=== PATIENT | female | born 1990 | race Caucasian/White ===

== ENCOUNTER 2016-06-22 17:41 | Emergency (ER) | payer BC ==
--- NOTE | 2016-06-22 18:32 | PD ---
HPI Chief Complaint lower abdominal cramping Date Seen: Jun 22, 2016 (David Rivera MD R2) Travel History International Travel<30 Days: No Contact w/Intl Traveler<30Days: No (David Rivera MD R2) History of Present Illness HPI Ms. Wells is a [address] Yi at 24 4/7 weeks via LMP (NABEEL ; records requested) who presents with lower abdominal "cramping" pain and frequent stool. Patient states that she feels that she has been having cramping pain for the past 24 hours which is constant in nature but worsening Q 2030 minutes. Patient also reports more frequent bowel movements than usual, stating she had 4 BM today. No reported blood or mucus in stools. Patient denies dysuria or fever. Patient states she has been drinking less water than usual, and feels that she has been dehydrated while traveling back from [place] (visiting her sister who is delivering a baby). Normal movement. Patient does not report vaginal bleeding or vaginal discharge. Patient does not report headache, visual changes, shortness of breath, nausea/ vomiting, or other symptoms at this time. Per patient, she has had benign history. Patient reports she had an ultrasound which showed her 1 week more advanced in than her LMP; or placental abnormalities reported. Para: 1 : 3 (David Rivera MD R2) History Past Medical History Medical History: Denies Significant Hx (David Rivera MD R2) Obstetric History Obstetric History G3 G1full term, delivered via CS for ? Arrest VS nonreassuring strip. Macrosomia [patient unclear, records requested] G2- miscarriage G3- pending (David Rivera MD R2) Past Surgical History Narrative Surgical section 1 (David Rivera MD R2) Family History Narrative Family History Hypertension, diabetes (David Rivera MD R2) Social History Alcohol Use: No Tobacco Use: No Substance Abuse: No (David Rivera MD R2) Allergies-Medications (Allergen,Severity, Reaction): Coded Allergies: No Known Allergies (Unverified , 06/22/16) Review of Systems General / Constitutional: No: Fever, Chills Eyes: No: Blurred Vision HENT: No: Headaches Cardiovascular: No: Chest Pain or Discomfort Respiratory: Short of Breath (chronic during when patient gets anxious; no increase recently) (David Rivera MD R2) Physical Exam Narrative GENERAL: Well-nourished, well-developed patient. SKIN: Warm and dry. HEAD: Normocephalic and atraumatic. EYES: No scleral icterus. No injection or drainage. ENT: No nasal drainage noted. Mucous membranes pink. Airway patent. NECK: Supple, trachea midline. No JVD. CARDIOVASCULAR: Regular rate and rhythm without murmurs. RESPIRATORY: CTAB, normal rate ABDOMEN/GI: Abdomen soft, non-tender, bowel sounds present, no rebound, no guarding Gravid Uterine Contractions: None EXTREMITIES: No cyanosis or edema. BACK: Nontender without obvious deformity. No CVA tenderness. NEUROLOGICAL: Awake and alert. Motor and sensory function grossly within normal limits. FHT's: FHR 160 bpm on Doppler (David Rivera MD R2) Data Data Vital Signs Reviewed: Yes (David Rivera MD R2) MDM Medical Record Reviewed: Yes Narrative Course / MDM [address] Yi at 24 4/7 weeks via LMP (NABEEL 10/08/2016; records requested) -Cramping abdominal pain -Frequent BM -FHR 160bpm -No contractions on EFM Plan: -Will monitor on EFM -Oral hydration given -Suspect cramping is likely secondary to viral gastroenteritis/stress due to frequent BM. Patient counselled to increase oral intake of fluids. (David Rivera MD R2) Attestation Patient was seen and examined. No problems reported during . Denies problems with US. (Rosina Joyce MD) David Rivera MD R2 Jun 22, 2016 18:32 Rosina Joyce MD Aug 25, 2016 11:09
[2016-06-22 19:03] VITALS: RESP 18
[2016-06-22 19:08] LABS: BACTERIA, URINE RARE /hpf; BLOOD, URINE NEG (NEG); COMMENT (UR) CULT NOT INDICATED; CULTURE IF INDICATED CULT NOT INDICATED; GLUCOSE,URINE NEG (NEG); KETONE, URINE NEG (NEG); MUCUS URINE FEW /lpf (OCC); NITRITE,URINE NEG (NEG); PH, URINE 6.5 (5.0-8.5); SQUAMOUS EPITHELIAL CELL URINE 2 /hpf (0-5); URINE COLOR LIGHT-YELLOW (YELLW/STRAW)
--- NOTE | 2016-06-22 19:40 | PD ---
HPI Chief Complaint Cramping Date Seen: Jun 22, 2016 Travel History International Travel<30 Days: No Contact w/Intl Traveler<30Days: No Known Affected Area: No History of Present Illness HPI at 24w 4d presents with c/o cramping for several hours. Denies contractions. Reports loose stool earlier today, now resolved. Reports some nausea earlier, now resolved. Denies LOF/VB. Denies urinary complaints. Para: 1 : 3 History Past Medical History Medical History: Denies Significant Hx Obstetric History Obstetric History FT C/S- unsure of indication Past Surgical History Surgical History: No Previous Surgery Family History Family History: Negative Social History Alcohol Use: No Tobacco Use: No Substance Abuse: No Allergies-Medications (Allergen,Severity, Reaction): Coded Allergies: No Known Allergies (Unverified , 06/22/16) Physical Exam Vital Signs Date Time Temp Pulse Resp B/P Pulse Ox O2 Delivery O2 Flow Rate FiO2 06/22/16 19:03 18 Narrative GENERAL: Well-nourished, well-developed patient. SKIN: Warm and dry. HEAD: Normocephalic and atraumatic. EYES: No scleral icterus. No injection or drainage. ENT: No nasal drainage noted. Mucous membranes pink. Airway patent. NECK: Supple, trachea midline. No JVD. CARDIOVASCULAR: Regular rate and rhythm without murmurs, gallops, or rubs. RESPIRATORY: Breath sounds equal bilaterally. No accessory muscle use. BREASTS: Bilateral exam showed no masses , no retractions, no nipple discharge. ABDOMEN/GI: Abdomen soft, non-tender, bowel sounds present, no rebound, no guarding Gravid to [-] weeks size Fundal Height: [-] GENITOURINARY: External Genitalia: intact and normal in appearance BUS glands: [-] Cervix: [0] Dilatation: [0] Effacement: [3] Station: [-] Presentation: [-] Membranes: [intact or ruptured] Uterine Contractions: [-] FHT's: Category: [1] Baseline: [140] Reactive: [-] Variability: [moderate] Decels: [none] EXTREMITIES: No cyanosis or edema. BACK: Nontender without obvious deformity. No CVA tenderness. NEUROLOGICAL: Awake and alert. Motor and sensory grossly within normal limits. Five out of 5 muscle strength in all muscle groups. Normal speech. Data Data Orders Vital Signs (Adult) .ON ADMISSION (06/22/16 18:41) ^ Labor Status (06/22/16 18:41) Urinalysis - C+S If Indicated (06/22/16 18:41) Fibronectin (06/22/16 19:29) Labs Laboratory Tests Test 06/22/16 18:14 Urine Color LIGHT-YELLOW Urine Turbidity CLEAR Urine pH 6.5 Urine Specific [place] 1.005 Urine Protein NEG Urine Glucose (UA) NEG Urine Ketones NEG Urine Occult Blood NEG Urine Nitrite NEG Urine Bilirubin NEG Urine Urobilinogen LESS THAN 2.0 Urine Leukocyte Esterase NEG Urine RBC LESS THAN 1 Urine WBC LESS THAN 1 Urine Squamous Epithelial 2 Cells Urine Bacteria RARE Urine Mucus FEW Microscopic Urinalysis Comment CULT NOT INDICATED Laboratory Tests Test 06/22/16 06/22/16 18:14 19:20 Urine Color LIGHT-YELLOW Urine Turbidity CLEAR Urine pH 6.5 Urine Specific [place] 1.005 Urine Protein NEG mg/dL Urine Glucose (UA) NEG mg/dL Urine Ketones NEG mg/dL Urine Occult Blood NEG Urine Nitrite NEG Urine Bilirubin NEG Urine Urobilinogen LESS THAN 2.0 MG/DL Urine Leukocyte Esterase NEG Urine RBC LESS THAN 1 /hpf Urine WBC LESS THAN 1 /hpf Urine Squamous Epithelial 2 /hpf Cells Urine Bacteria RARE /hpf Urine Mucus FEW /lpf Microscopic Urinalysis Comment CULT NOT INDICATED Fibronectin NEGATIVE MDM Interpretation(s) at 24w 4d with cramping/occasional contractions Plan FFN obtained. Will await results. Will begin IVF. Will d/c home if FFN is negative and no cervical change is noted. Close f/u. All questions answered. Diagnosis Diagnosis: Primary Impression: 24 completed weeks of gestation Additional Impression: Irregular contractions Condition: Rosina Prater MD Jun 22, 2016 19:40
[2016-06-22 20:15] VITALS: RESP 18
== END 2016-06-22 20:34 | disposition home or self-care (01) ==
LOC: HOBED 17:41
DX: O26.892 Other specified pregnancy related conditions, second trimester (principal); R10.9 Unspecified abdominal pain; Z3A.24 24 weeks gestation of pregnancy
CPT/HCPCS: 81001; 82731; 96360

== ENCOUNTER 2016-10-01 23:38 | Inpatient (IN) | payer BC, OTHER ==
[~2016-10-01] VITALS: Ht 154.9 cm; Wt 66.7 kg
[2016-10-02] VITALS (44 sets, daily range): BP systolic 93–132; BP diastolic 53–78; PULSE 65–130; RESP 16–20; TEMP 97.6–98.6
--- NOTE | 2016-10-02 00:27 | PD ---
HPI Chief Complaint contraction Date Seen: Oct 02, 2016 Time Seen: 00:15 Travel History International Travel<30 Days: No Contact w/Intl Traveler<30Days: No Known Affected Area: No History of Present Illness HPI Pt is a 26 y/o with IUP at 39.1 weeks who presents with c/o contractions since 2:30 pm. currently feeling every 3-4 minutes. reports some brown spotting today. denies LOF. +FM Pt has a h/o delivery and desires TOLAC Para: 1 : 3 Miscarriage: 1 History Past Medical History Medical History: Denies Significant Hx Obstetric History Obstetric History 01/2013 FT primary CD at 39 wks; pt states she was induced and reached complete dilation and pushed for about 2 hours. states there was meconium stained fluid and was told baby would not fit through pelvis SAB x 1 Past Surgical History Narrative Surgical Family History Family History: Negative Social History Alcohol Use: No Tobacco Use: No Substance Abuse: No Allergies-Medications (Allergen,Severity, Reaction): Coded Allergies: No Known Allergies (Unverified , 06/22/16) Narrative Medication PNV Review of Systems General / Constitutional: Weight Gain Eyes: No: Diploplia, Blurred Vision, Visual changes, Pain, Photophobia, Other HENT: No: Headaches, Vertigo, Dental Difficulties, Lightheadedness, Other Cardiovascular: No: Irregular Rhythm, Chest Pain or Discomfort, Palpitations, Tachycardia, Syncope, Varicosities, Edema, Cyanosis, Other Respiratory: No: Cough, Short of Breath, Wheezing, Other Gastrointestinal: Abdominal Pain Genitourinary: No: Urgency, Frequency, Dysuria, Nocturia, Hematuria, Decreased Urinary Output, Oliguria, Hesitancy, Dribbling, Incontinence, Pelvic Pain, Dyspareunia, Discharge, Menorrhagia, Vaginal Bleeding, Other Musculoskeletal: No: Limited ROM, Weakness, Cramping, Edema, Pain, Other Skin: No Rash, No Itching, No Dryness, No Lumps, No Change in Pigmentation, No Change in Nails, No Alopecia, No Lesions, No Breast Lumps, No Breast Tenderness , No Breast Swelling, No Other Neurologic: No: Weakness, Dizziness, Syncope, Focal Abnormalities, Coordination Problem, Headache, Slurred Speech, Seizures, Other Psychiatric: No: Anxiety, Depression, Suicidal Ideations, Disorder of Thought, Mood Disorder, Substance Abuse, Homicidal Ideation, Other Endocrine: No: Heat Intolerance, Cold Intolerance, Polydipsia, Polyuria, Other Hematologic/Lymphatic: No Easy Bruising, No Lymph Node Enlargement, No Other Physical Exam 112/77, 69, 20, 97.8 Narrative GENERAL: Well-nourished, well-developed patient. SKIN: Warm and dry. HEAD: Normocephalic and atraumatic. EYES: No scleral icterus. No injection or drainage. ENT: No nasal drainage noted. Mucous membranes pink. Airway patent. NECK: Supple, trachea midline. No JVD. CARDIOVASCULAR: Regular rate and rhythm without murmurs, gallops, or rubs. RESPIRATORY: Breath sounds equal bilaterally. No accessory muscle use. ABDOMEN/GI: Abdomen soft, non-tender, bowel sounds present, no rebound, no guarding Gravid GENITOURINARY: External Genitalia: intact and normal in appearance BUS glands: [wnl] Cervix: mid position Dilatation: 1 Effacement: 80 Station: -1 Presentation: [facility] Membranes: intact Uterine Contractions: [q5] FHT's: Category: 1 Baseline: 125 Reactive: yes Variability: mod Decels: early EXTREMITIES: No cyanosis or edema. BACK: Nontender without obvious deformity. No CVA tenderness. NEUROLOGICAL: Awake and alert. Motor and sensory grossly within normal limits. Five out of 5 muscle strength in all muscle groups. Normal speech. Data Data Vital Signs Reviewed: Yes [facility] Medical Record Reviewed: Yes (GBS neg) Narrative Course / MDM 26 y/o with IUP at 39.1 wks with contractions, rule out labor previous desires TOLAC GBS neg cat 1 tracing Pt with regular painful contractions, but only 1 cm dilated. Will have patient ambulate and recheck cervix. PT very uncomfortable with contractions. rates pain 9/10. on recheck, cervix 2 /80/-1, ceph. Will admit for labor, desires TOLAC. Dr. Iglesias notified. Plan admit for delivery GBS neg Alessandra Birmingham MD Oct 02, 2016 00:27
[2016-10-02] MEDS ORDERED: LACTATED RINGER'S 1000 ML INJ 1,000 ML IV PRN (01:50)
[2016-10-02] MEDS ORDERED: SODIUM CHLORID 0.9% 500 ML INJ 500 ML IV PRN (02:00)
[2016-10-02] MEDS ORDERED: LIDOCAINE HCL 1% 50 ML VIAL INFIL PRN (02:00)
[2016-10-02] MEDS ORDERED: MINERAL OIL 10 ML VIAL TOPICAL PRN (02:00)
[2016-10-02] MEDS ORDERED: LIDOCAINE HCL 1% 50 ML VIAL I-DERMAL PRN (02:00)
[2016-10-02] MEDS ORDERED: ONDANSETRON HCL 4 MG/2 ML VIAL IV PRN (02:00)
[2016-10-02] MEDS ORDERED: OXYTOCIN 30 UNITS-500ML PREMIX 500 ML IV ONE (02:00)
[2016-10-02] MEDS ORDERED: CITRIC ACID-SODIUM CITRATE LIQ 30 ML UDC PO SCH (02:00)
[2016-10-02] MEDS ORDERED: PREN0.01 PO (02:10)
[2016-10-02] MEDS ORDERED: SODIUM CHLOR 0.9% 1000 ML INJ 1,000 ML IV PRN (02:10)
[2016-10-02] MEDS ORDERED: fentaNYL 2MCG-BUPIV 0.125% INJ 100 ML ONE (02:35)
[2016-10-02] MEDS ORDERED: ePHEDrine/NS 25 MG/5 ML SYR ONE (02:36)
[2016-10-02 02:40] LABS: AUTOMATED NEUTROPHIL # 12.2 TH/MM3 (1.8-7.7); BASOPHIL # 0.1 TH/MM3 (0-0.2); BASOPHIL % 0.5 % (0.0-2.0); EOSINOPHIL # 0.1 TH/MM3 (0-0.4); EOSINOPHIL % 0.4 % (0.0-4.0); HEMATOCRIT 37.3 % (35.0-46.0); LYMPH % 19.7 % (9.0-44.0); LYMPHOCYTE # 3.2 TH/MM3 (1.0-4.8); MEAN CELL VOLUME 92.9 FL (80.0-100.0); MEAN CORPUSCULAR HEMOGLOBIN 31.3 PG (27.0-34.0); MEAN CORPUSCULAR HGB CONC 33.7 % (32.0-36.0); MONO % 5.2 % (0.0-8.0); NEUT % 74.2 % (16.0-70.0); PLATELET COUNT 174 TH/MM3 (150-450); RED BLOOD COUNT 4.01 MIL/MM3 (4.00-5.30); RED CELL DISTRIBUTION WIDTH 13.1 % (11.6-17.2); WHITE BLOOD COUNT 16.4 TH/MM3 (4.0-11.0)
[2016-10-02 02:55] LABS: HEMO FLAGS AUTO DIFF
[2016-10-02] MEDS: LACTATED RINGER'S 1000 ML INJ 1,000 ML IV SCH ×2 (03:07→14:38)
[2016-10-02] MEDS ORDERED: NO SYSTEM NARCOTICS PRN (03:15)
[2016-10-02] MEDS ORDERED: DO NOT ADMINISTER ANTICOAGULANTS PRN (03:15)
[2016-10-02] MEDS ORDERED: ePHEDrine/NS 25 MG/5 ML SYR IV PRN (03:15)
[2016-10-02 05:09] LABS: BANDS 12 % (0-6); BASOPHILS 1 % (0-2); METAMYELOCYTES 1 % (0-1); NEUTROPHIL # MANUAL DIFF 13.9 TH/MM3 (1.8-7.7); POLYS (SEG NEUTROPHILS) 72 % (16-70); SCAN/DIFF FINAL DIFF MANUAL; WBC DIFF SAMPLE 100
[2016-10-02 05:10] LABS: PLATELET ESTIMATE SMEAR NORMAL (NORMAL); PLATELET MORPHOLOGY NORMAL (NORMAL)
[2016-10-02 05:11] LABS: DOHLE BODIES PRESENT (NONE SEEN)
--- NOTE | 2016-10-02 07:53 | PD.LABORPN ---
Subjective Subjective Began UCs every 5 minutes late last night. Came in and got epidural. comfortable now and excited. Lots of old blood in vault. Objective Vital Signs Vital Signs Date Time Temp Pulse Resp B/P Pulse Ox O2 Delivery O2 Flow Rate FiO2 10/02/16 06:30 78 93/63 10/02/16 06:01 80 106/70 10/02/16 05:45 98.1 18 10/02/16 05:30 69 102/59 10/02/16 05:00 65 99/58 10/02/16 04:30 67 104/54 10/02/16 04:00 92 102/56 10/02/16 03:30 74 110/58 10/02/16 03:20 80 10/02/16 03:20 75 106/59 10/02/16 03:18 82 98/64 10/02/16 03:15 80 10/02/16 03:15 75 106/60 10/02/16 03:13 79 102/57 10/02/16 03:10 79 10/02/16 03:10 77 104/55 10/02/16 03:08 75 115/56 10/02/16 03:07 18 10/02/16 03:05 79 10/02/16 03:05 73 106/59 10/02/16 03:03 74 114/54 10/02/16 03:00 75 110/78 10/02/16 03:00 82 10/02/16 02:59 78 115/68 10/02/16 02:55 78 10/02/16 01:50 20 10/02/16 01:49 80 109/67 10/02/16 01:40 76 10/02/16 01:25 80 10/02/16 01:15 20 10/02/16 00:10 71 Objective 5/100/-1 EFW 7 pounds pelvis clinically adequate strip category one Assessment/Plan Assessment and Plan TOLAC prior section after pushing and meconium (not sure if given adequate time) laboring well on her own) anticipate Bailey Arauz MD Oct 02, 2016 07:53
[2016-10-02] MEDS: fentaNYL 2MCG-BUPIV 0.125% 100 ML EPIDURAL SCH ×2 (09:25→14:38)
[2016-10-02] MEDS ORDERED: OXYTOCIN 30 UNITS-500ML PREMIX 500 ML ONE (15:06)
--- NOTE | 2016-10-02 15:38 | PD.OB.DELI ---
Anesthesia: Epidural Episiotomy: None Vaginal Delivery: Presentation: Occiput anterior Nuchal Cord: None Delayed cord clamping (45 sec): Yes : Male One Minute : 9 Five Minute : 9 Weight: 8 Placenta: Spontaneous delivery Laceration: 1 Bailey Campos MD Oct 02, 2016 15:38
[2016-10-02] MEDS ORDERED: BENZOCAINE 20% TOPICAL SPRAY 60 ML CAN TOPICAL PRN (15:45)
[2016-10-02] MEDS ORDERED: WITCH HAZEL 50%/GLYCERIN 12.5% 40 PAD JAR TOPICAL PRN (15:45)
[2016-10-02] MEDS ORDERED: ONDANSETRON ODT 4 MG TAB PO PRN (15:45)
[2016-10-02] MEDS ORDERED: ZOLPIDEM TARTRATE 5 MG TAB PO PRN (15:45)
[2016-10-02] MEDS ORDERED: SODIUM CHLORIDE 0.9% FLUSH 10 ML FLUSH IV FLUSH PRN (15:45)
[2016-10-02] MEDS ORDERED: ALUMINUM/MAGNESIUM/SIMETH 30 ML CUP PO PRN (15:45)
[2016-10-02] MEDS ORDERED: DIPHTH/TETANUS/ACEL PERTUSSIS (BOOSTER) 0.5 ML VIAL/PFS IM ONE (16:00)
[2016-10-02] MEDS ORDERED: MEASLES, MUMPS, RUBELLA VACCINE 0.5 ML VIAL SQ ONE (16:00)
[2016-10-02] MEDS: DOCUSATE SODIUM 50 MG/SENNA 8.6 MG TAB PO PRN (18:19)
[2016-10-02] MEDS: ACETAMINOPHEN 325 MG TAB PO PRN (18:19)
[2016-10-02] MEDS: IBUPROFEN 600 MG TAB PO PRN (18:20)
[2016-10-02] MEDS ORDERED: SODIUM CHLORIDE 0.9% FLUSH 10 ML FLUSH IV FLUSH SCH (21:00)
--- NOTE | 2016-10-03 02:30 | HHI.OB ---
Subjective Post Day: 1 Remarks doing well, no complaints Objective Vitals/I&O Vital Signs Date Time Temp Pulse Resp B/P Pulse Ox O2 Delivery O2 Flow Rate FiO2 10/02/16 20:15 97.6 93 20 109/70 10/02/16 17:50 98.6 78 16 98/64 10/02/16 16:23 90 98/62 10/02/16 16:20 18 10/02/16 16:05 18 10/02/16 16:00 90 114/69 10/02/16 15:50 18 10/02/16 15:45 86 132/76 10/02/16 15:32 18 10/02/16 15:30 130 108/58 10/02/16 14:38 16 10/02/16 14:35 97.9 18 10/02/16 14:30 97 104/59 10/02/16 14:00 85 113/59 10/02/16 13:54 94 105/53 10/02/16 13:30 104 103/59 10/02/16 13:00 89 103/77 10/02/16 13:00 98.6 76 16 108/62 10/02/16 11:37 16 10/02/16 11:30 84 111/62 10/02/16 09:47 98.0 10/02/16 09:25 18 10/02/16 06:30 78 93/63 10/02/16 06:01 80 106/70 10/02/16 05:45 98.1 18 10/02/16 05:30 69 102/59 10/02/16 05:00 65 99/58 10/02/16 04:30 67 104/54 10/02/16 04:00 92 102/56 10/02/16 03:30 74 110/58 10/02/16 03:20 80 10/02/16 03:20 75 106/59 10/02/16 03:18 82 98/64 10/02/16 03:15 80 10/02/16 03:15 75 106/60 10/02/16 03:13 79 102/57 10/02/16 03:10 79 10/02/16 03:10 77 104/55 10/02/16 03:08 75 115/56 10/02/16 03:07 18 10/02/16 03:05 79 10/02/16 03:05 73 106/59 10/02/16 03:03 74 114/54 10/02/16 03:00 75 110/78 10/02/16 03:00 82 10/02/16 02:59 78 115/68 10/02/16 02:55 78 Objective Remarks GENERAL: Well-nourished, well-developed patient. CARDIOVASCULAR: Regular rate and rhythm without murmurs, gallops, or rubs. RESPIRATORY: Breath sounds equal bilaterally. No accessory muscle use. ABDOMEN/GI: Abdomen soft, non-tender. Fundus: Firm, non-tender at umbilicus. GENITOURINARY: Light to moderate bleeding. EXTREMITIES: No cyanosis or edema, non-tender, without signs of DVT. Medications and IVs Current Medications Medications (Trade) Dose Ordered Sig/Johnnie Route Start Time Stop Time Status Last Admin Lactated Ringer's 1,000 ml @ 125 mls/hr Q8H IV 10/02/16 01:50 10/02/16 14:38 Lactated Ringer's 1,000 ml @ 3,000 mls/hr Q20M PRN IV 10/02/16 01:50 Sodium Chloride 500 ml @ 1,000 mls/hr ONCE PRN IV 10/02/16 02:00 (NS 1000 ml Inj) 1,000 ml @ 100 mls/hr Q10H PRN IV 10/02/16 02:10 (Zofran Inj) 4 mg Q6H PRN IV 10/02/16 02:00 10/02/16 13:56 (fentaNYL INJ) 50 mcg Q1H PRN IV PUSH 10/02/16 02:00 (fentaNYL INJ) 100 mcg Q1H PRN IV PUSH 10/02/16 02:00 (Muri-Lube Oil) 10 ml UNSCH PRN TOPICAL 10/02/16 02:00 Miscellaneous Information No systemic narcotics to be given except... UNSCH PRN .XX 10/02/16 03:15 10/03/16 03:14 Miscellaneous Information DO NOT ADMINISTER ANY ANTICOAGUL... UNSCH PRN .XX 10/02/16 03:15 10/03/16 03:14 (fentaNYL 2MCG-BUPIV 0.125% INJ) 100 ml @ 0 mls/hr TITRATE EPIDURAL 10/02/16 03:15 10/02/16 14:38 (ePHEDrine/NS 25 MG/5 ML SYR) 10 mg UNSCH PRN IV 10/02/16 03:15 10/03/16 03:14 (NS Flush) 2 ml BID IV FLUSH 10/02/16 21:00 (NS Flush) 2 ml UNSCH PRN IV FLUSH 10/02/16 15:45 (Tylenol) 650 mg Q4H PRN PO 10/02/16 15:45 10/02/16 18:19 (Motrin) 600 mg Q6H PRN PO 10/02/16 15:45 10/02/16 18:20 (Americaine 20% Top Spr) 1 spray Q4H PRN TOPICAL 10/02/16 15:45 10/02/16 18:19 (Tucks Pads) 1 applic QID PRN TOPICAL 10/02/16 15:45 10/02/16 18:19 (Emily-Colace) 2 tab Q12H PRN PO 10/02/16 15:45 10/02/16 18:19 (Ambien) 5 mg HS PRN PO 10/02/16 15:45 (Mag-Al Plus Susp Liq) 15 ml Q8H PRN PO 10/02/16 15:45 (Zofran Odt) 4 mg Q6H PRN PO 10/02/16 15:45 Assessment/Plan Problem List: (1) , delivered Assessment and Plan PPD 1 s/p successful cont routine care dispo d/c ppd2 Edie Valadez MD Oct 03, 2016 02:30
[2016-10-03] MEDS: IBUPROFEN 600 MG TAB PO PRN ×4 (03:37→21:53)
[2016-10-03] MEDS: ACETAMINOPHEN 325 MG TAB PO PRN ×4 (03:37→21:53)
[2016-10-03 08:00] VITALS: BP 102/68; PULSE 80; RESP 16; TEMP 98.4
[2016-10-03 20:30] VITALS: BP 100/59; PULSE 60; RESP 18; TEMP 97.8
[2016-10-03] MEDS: DOCUSATE SODIUM 50 MG/SENNA 8.6 MG TAB PO PRN (21:52)
[2016-10-04] MEDS: ACETAMINOPHEN 325 MG TAB PO PRN ×3 (04:05→17:13)
[2016-10-04] MEDS: IBUPROFEN 600 MG TAB PO PRN ×3 (04:05→17:13)
[2016-10-04 08:00] VITALS: BP 106/78; PULSE 74; RESP 16; TEMP 98
[2016-10-04] MEDS: DOCUSATE SODIUM 50 MG/SENNA 8.6 MG TAB PO PRN (10:07)
--- NOTE | 2016-10-04 11:14 | HHI.OB ---
Subjective Post Day: 2 Remarks doing well. Baby under lights for elevated bili levels. Uncertain if he will come off of lights today. Objective Vitals/I&O Vital Signs Date Time Temp Pulse Resp B/P Pulse Ox O2 Delivery O2 Flow Rate FiO2 10/04/16 08:00 74 106/78 10/04/16 08:00 98.0 16 10/03/16 20:30 97.8 60 18 100/59 Objective Remarks GENERAL: Well-nourished, well-developed patient. CARDIOVASCULAR: Regular rate and rhythm without murmurs, gallops, or rubs. RESPIRATORY: Breath sounds equal bilaterally. No accessory muscle use. ABDOMEN/GI: Abdomen soft, non-tender. Fundus: Firm, non-tender at umbilicus. GENITOURINARY: Light to moderate bleeding. EXTREMITIES: No cyanosis or edema, non-tender, without signs of DVT. Medications and IVs Current Medications Medications (Trade) Dose Ordered Sig/Johnnie Route Start Time Stop Time Status Last Admin Lactated Ringer's 1,000 ml @ 125 mls/hr Q8H IV 10/02/16 01:50 10/02/16 14:38 Lactated Ringer's 1,000 ml @ 3,000 mls/hr Q20M PRN IV 10/02/16 01:50 Sodium Chloride 500 ml @ 1,000 mls/hr ONCE PRN IV 10/02/16 02:00 (NS 1000 ml Inj) 1,000 ml @ 100 mls/hr Q10H PRN IV 10/02/16 02:10 (Zofran Inj) 4 mg Q6H PRN IV 10/02/16 02:00 10/02/16 13:56 (fentaNYL INJ) 50 mcg Q1H PRN IV PUSH 10/02/16 02:00 (fentaNYL INJ) 100 mcg Q1H PRN IV PUSH 10/02/16 02:00 Mineral Oil 10 ml 10 ml UNSCH PRN TOPICAL 10/02/16 02:00 (fentaNYL 2MCG-BUPIV 0.125% INJ) 100 ml @ 0 mls/hr TITRATE EPIDURAL 10/02/16 03:15 10/02/16 14:38 (NS Flush) 2 ml BID IV FLUSH 10/02/16 21:00 (NS Flush) 2 ml UNSCH PRN IV FLUSH 10/02/16 15:45 (Tylenol) 650 mg Q4H PRN PO 10/02/16 15:45 10/04/16 10:07 (Motrin) 600 mg Q6H PRN PO 10/02/16 15:45 10/04/16 10:07 (Americaine 20% Top Spr) 1 spray Q4H PRN TOPICAL 10/02/16 15:45 10/02/16 18:19 (Tucks Pads) 1 applic QID PRN TOPICAL 10/02/16 15:45 10/02/16 18:19 (Emily-Colace) 2 tab Q12H PRN PO 10/02/16 15:45 10/04/16 10:07 (Ambien) 5 mg HS PRN PO 10/02/16 15:45 (Mag-Al Plus Susp Liq) 15 ml Q8H PRN PO 10/02/16 15:45 (Zofran Odt) 4 mg Q6H PRN PO 10/02/16 15:45 Assessment/Plan Problem List: (1) , delivered Assessment and Plan PPD 2 s/p successful cont routine care infant circ can not be done as baby under bili lights. May have circ tomorrow or in office dispo d/c ppd2 Edie aVladez MD Oct 04, 2016 11:14
[2016-10-04] MEDS ORDERED: IBUP-232 PO (11:15)
--- NOTE | 2016-10-04 11:15 | HHI.DCPOC ---
Discharge Care Plan Diagnosis: (1) , delivered Your Health Problems Are: Vaginal delivery Report Symptoms to Your Doctor -Temperature above 100.5 degrees -Redness, of incision or excessive or foul smelling drainage -Unusual pain or calf pain -Increased vaginal bleeding -Painful or difficulty urinating -Feelings of extreme sadness or anxiety after 2 weeks Goals to Promote Your Health * To prevent worsening of your condition and complications * To maintain your health at the optimal level Directions to Meet Your Goals Take your medications as prescribed Follow your dietary instruction Follow activity as directed Ensure plenty of rest for recovery Drink fluids for hydration Keep your appointments as scheduled Take your immunizations and boosters as scheduled If your symptoms worsen call your PCP, if no PCP go to Urgent Care Center or Emergency Room Smoking is Dangerous to Your Health. Avoid second hand smoke Call the 24-hour crisis hotline for domestic abuse at Edie Valadez MD Oct 04, 2016 11:15
== END 2016-10-04 19:08 | disposition home or self-care (01) | DRG 775 ==
LOC: HOBED 23:38 → H2EA 10-02 01:51 → H1EA 10-02 17:39
PROVIDERS: ADMIT Obstetrics & Gynecology; ATTEND Obstetrics & Gynecology
PROC: 0HQ9XZZ Repair Perineum Skin, External Approach (ICD-10-PCS; principal; 2016-10-02)
PROC: 10D07Z6 Extraction of Products of Conception, Vacuum, Via Natural or Artificial Opening (ICD-10-PCS; 2016-10-02)
PROC: 3E0R3CZ (ICD-10-PCS; 2016-10-02)
PROC: 00HU33Z Insertion of Infusion Device into Spinal Canal, Percutaneous Approach (ICD-10-PCS; 2016-10-02)
DX: O34.219 Maternal care for unspecified type scar from previous cesarean delivery (principal); O77.0 Labor and delivery complicated by meconium in amniotic fluid; O70.0 First degree perineal laceration during delivery; Z37.0 Single live birth; Z3A.39 39 weeks gestation of pregnancy
CPT/HCPCS: 85007; 85027; 86900; 86901; 90715; J2405; J2590; J7120